=== PATIENT | male | born 1970 | race African-American/Black ===

== ENCOUNTER 2021-06-28 08:09 | Inpatient (IN) | payer OTHER ==
[~2021-06-28] VITALS: Ht 175.3 cm; Wt 59.4 kg
[2021-06-28 09:07] LABS: BASOPHILS % 0.9 % (0.0-2.0); EOSINOPHILS % 2.5 % (0.0-5.0); HEMATOCRIT. 38.1 % (42.0-52.0); LYMPHOCYTES % 28.9 % (20.0-50.0); MEAN CORPUSCULAR HEMOGLOBIN 26.8 pg (28.0-32.0); MEAN CORPUSCULAR VOLUME 85.1 fL (80.0-94.0); MEAN PLATELET VOLUME 8.4 fl (7.4-10.4); NEUTROPHILS % 60.7 % (40.0-76.0); PLATELET 414 x1000/uL (130-400); RED BLOOD CELL COUNT 4.47 mill/uL (4.7-6.1); RED CELL DISTRIBUTION WIDTH 15.9 % (11.6-14.6)
[2021-06-28 09:11] LABS: CLARITY URINE CLEAR (CLEAR); COLOR URINE YELLOW (YELLOW); KETONES URINE NEGATIVE (NEGATIVE); LEUKOCYTE ESTERASE URINE NEGATIVE (NEGATIVE); NITRITE URINE NEGATIVE (NEGATIVE); OCCULT BLOOD URINE NEGATIVE (NEGATIVE); PROTEIN URINE NEGATIVE (NEGATIVE); SPECIFIC GRAVITY URINE 1.012 (1.005-1.030); UROBILINOGEN URINE 0.2 E.U./dL (0.2-1.0)
[2021-06-28 09:16] LABS: CHLORIDE 116 mEq/L (98-107)
[2021-06-28 09:20] LABS: ETHANOL BLOOD < 10 mg/dL
[2021-06-28 09:24] LABS: *AMPHETAMINES SCREEN URINE NEGATIVE (NEGATIVE)
[2021-06-28 09:25] LABS: *BARBITURATES SCREEN URINE NEGATIVE (NEGATIVE); *BENZODIAZEPINES SCREEN URINE NEGATIVE (NEGATIVE); *COCAINE SCREEN URINE PRESUMTIVE POSITIVE (NEGATIVE); METHADONE URINE SCREEN NEGATIVE (NEGATIVE); OPIATES URINE SCREEN NEGATIVE (NEGATIVE)
[2021-06-28 09:26] LABS: CANNABINOID URINE SCREEN PRESUMTIVE POSITIVE (NEGATIVE); PHENCYCLIDINE URINE SCREEN NEGATIVE (NEGATIVE)
[2021-06-28] MEDS ORDERED: ASPIRIN 300MG SUPP PR ONE (09:30)
[2021-06-28 12:00] VITALS: BP 150/74
[2021-06-28] MEDS: ENOXAPARIN 40MG/0.4ML SYR SUBCUT SCH (14:53)
[2021-06-28 16:00] VITALS: BP 138/79
[2021-06-28 20:00] VITALS: BP 118/69
[2021-06-28 20:26] LABS: BASOPHILS % 0.7 % (0.0-2.0); EOSINOPHILS % 2.2 % (0.0-5.0); HEMATOCRIT. 34.7 % (42.0-52.0); LYMPHOCYTES % 38.4 % (20.0-50.0); MEAN CORPUSCULAR HEMOGLOBIN 27.1 pg (28.0-32.0); MEAN CORPUSCULAR VOLUME 85.1 fL (80.0-94.0); MEAN PLATELET VOLUME 8.5 fl (7.4-10.4); NEUTROPHILS % 50.7 % (40.0-76.0); PLATELET 427 x1000/uL (130-400); RED BLOOD CELL COUNT 4.08 mill/uL (4.7-6.1); RED CELL DISTRIBUTION WIDTH 15.4 % (11.6-14.6)
[2021-06-28 20:34] LABS: CHLORIDE 115 mEq/L (98-107)
[2021-06-28 20:41] LABS: LDL CHOLESTEROL 54 mg/dL (5-100)
[2021-06-28 20:43] LABS: HDL CHOLESTEROL 30 mg/dL (40-59)
[2021-06-29] VITALS: BP 136/65
[2021-06-29 04:00] VITALS: BP 152/78
[2021-06-29 08:00] VITALS: BP 145/73
[2021-06-29] MEDS: ASPIRIN 81MG TABLET PO SCH (10:12)
[2021-06-29] MEDS: ACETAMINOPHEN 325MG TABLET PO PRN ×2 (10:12→23:47)
[2021-06-29 12:00] VITALS: BP 146/77
[2021-06-29] MEDS: ENOXAPARIN 40MG/0.4ML SYR SUBCUT SCH (13:38)
[2021-06-29 16:00] VITALS: BP 138/79
[2021-06-29 20:00] VITALS: BP 148/77
[2021-06-30] VITALS: BP 133/69
[2021-06-30 04:00] VITALS: BP 139/77
[2021-06-30 07:21] LABS: BASOPHILS % 0.3 % (0.0-2.0); EOSINOPHILS % 1.8 % (0.0-5.0); HEMATOCRIT. 32.8 % (42.0-52.0); HEMOGLOBIN. 10.9 g/dL (14.0-18.0); LYMPHOCYTES % 26.7 % (20.0-50.0); MEAN CORPUSCULAR HEMOGLOBIN 27.9 pg (28.0-32.0); MEAN CORPUSCULAR VOLUME 83.9 fL (80.0-94.0); MEAN PLATELET VOLUME 8.5 fl (7.4-10.4); MONOCYTES % 8.6 % (2.0-8.0); NEUTROPHILS % 62.6 % (40.0-76.0); PLATELET 394 x1000/uL (130-400); RED BLOOD CELL COUNT 3.91 mill/uL (4.7-6.1); RED CELL DISTRIBUTION WIDTH 15.5 % (11.6-14.6)
[2021-06-30 07:27] LABS: CHLORIDE 112 mEq/L (98-107)
[2021-06-30] MEDS: FAMOTIDINE 20MG TABLET PO SCH ×2 (10:26→21:00)
[2021-06-30] MEDS: ASPIRIN 81MG TABLET PO SCH (10:26)
[2021-06-30 12:00] VITALS: BP 143/83
[2021-06-30] MEDS ORDERED: GADOTERATE MEGLUMINE 5 MMOL/10 ML VIAL IV ONE (13:52)
[2021-06-30] MEDS: ENOXAPARIN 40MG/0.4ML SYR SUBCUT SCH (15:10)
[2021-06-30] MEDS: GABAPENTIN 100MG CAPSULE PO SCH ×2 (15:10→21:00)
[2021-06-30 16:00] VITALS: BP 135/70
[2021-06-30 17:22] LABS: CARCINO EMBRYONIC ANTIGEN 3.4 ng/ml; PROSTRATE SPECIFIC AG TOTAL 0.53 ng/mL (0.0-4.0)
[2021-06-30 20:00] VITALS: BP 154/83
[2021-06-30] MEDS: ACETAMINOPHEN 325MG TABLET PO PRN (21:00)
[2021-07-01] VITALS: BP 121/75
[2021-07-01 04:00] VITALS: BP 139/80
[2021-07-01] MEDS: GABAPENTIN 100MG CAPSULE PO SCH ×3 (05:14→20:51)
[2021-07-01 08:00] VITALS: BP 148/91
[2021-07-01] MEDS: FAMOTIDINE 20MG TABLET PO SCH ×2 (08:31→20:51)
[2021-07-01] MEDS: ASPIRIN 81MG TABLET PO SCH (08:32)
[2021-07-01] MEDS ORDERED: IOHEXOL-300 100 ML BOTTLE ONE (11:22)
[2021-07-01 12:00] VITALS: BP 137/90
[2021-07-01] MEDS: ENOXAPARIN 40MG/0.4ML SYR SUBCUT SCH (13:51)
[2021-07-01 16:00] VITALS: BP 129/78
[2021-07-01 20:00] VITALS: BP 143/88
[2021-07-02] VITALS: BP 130/86
[2021-07-02] MEDS: ACETAMINOPHEN 325MG TABLET PO PRN (03:10)
[2021-07-02 04:00] VITALS: BP 147/78
[2021-07-02] MEDS: GABAPENTIN 100MG CAPSULE PO SCH ×3 (05:16→19:36)
[2021-07-02 08:00] VITALS: BP 160/106
[2021-07-02] MEDS: ASPIRIN 81MG TABLET PO SCH (08:36)
[2021-07-02] MEDS: FAMOTIDINE 20MG TABLET PO SCH ×2 (08:36→19:36)
[2021-07-02 12:00] VITALS: BP 115/67
[2021-07-02] MEDS ORDERED: GABA-529 PO (12:01)
[2021-07-02] MEDS: ENOXAPARIN 40MG/0.4ML SYR SUBCUT SCH (15:49)
[2021-07-02 16:30] VITALS: BP 132/65
[2021-07-02 20:00] VITALS: BP 127/82
[2021-07-03] VITALS (7 sets, daily range): BP systolic 113–157; BP diastolic 60–94
[2021-07-03] MEDS: GABAPENTIN 100MG CAPSULE PO SCH ×3 (05:28→21:55)
[2021-07-03] MEDS: FAMOTIDINE 20MG TABLET PO SCH ×2 (09:24→20:22)
[2021-07-03] MEDS: ASPIRIN 81MG TABLET PO SCH (09:24)
[2021-07-03] MEDS: ENOXAPARIN 40MG/0.4ML SYR SUBCUT SCH (15:20)
[2021-07-03] MEDS ORDERED: CLONIDINE 0.1MG TABLET PO PRN (21:45)
[2021-07-04 03:10] VITALS: BP 130/77
[2021-07-04] MEDS: GABAPENTIN 100MG CAPSULE PO SCH ×2 (05:17→14:30)
[2021-07-04 08:00] VITALS: BP 128/65
[2021-07-04] MEDS: ASPIRIN 81MG TABLET PO SCH (10:29)
[2021-07-04] MEDS: FAMOTIDINE 20MG TABLET PO SCH (10:29)
[2021-07-04 12:00] VITALS: BP 132/74
[2021-07-04] MEDS: ENOXAPARIN 40MG/0.4ML SYR SUBCUT SCH (14:30)
[2021-07-04 15:01] VITALS: BP 128/76
[2021-07-04 16:00] VITALS: BP 127/69
== END 2021-07-04 15:25 | disposition home or self-care (01) | DRG 45 ==
LOC: ER 08:18 → 8WST 09:41 → EDBEDREQ 09:51 → EDBEDREQSVC 09:51 → ENRESERV 10:16
PROVIDERS: ADMIT Family Medicine; ATTEND Family Medicine
DX: I63.9 Cerebral infarction, unspecified (principal); C71.9 Malignant neoplasm of brain, unspecified; I69.354 Hemiplegia and hemiparesis following cerebral infarction affecting left non-dominant side; R62.7 Adult failure to thrive; F17.210 Nicotine dependence, cigarettes, uncomplicated; R26.9 Unspecified abnormalities of gait and mobility; G93.9 Disorder of brain, unspecified; F14.10 Cocaine abuse, uncomplicated; R47.81 Slurred speech; R53.1 Weakness; Z59.00 Homelessness unspecified; Z68.1 Body mass index [BMI] 19.9 or less, adult; Z20.822 Contact with and (suspected) exposure to COVID-19
CPT/HCPCS: 36415; 70551; 70552; 71045; 71260; 74177; 80048; 80053; 80061; 80305; 80320; 81003; 82378; 82962; 84153; 84484; 85025; 87426; 92523; 92610; 93005; 93970; 97116; 97162; 97166; 99291; A9577; J1650; Q9967; G0103; G0480